=== PATIENT | female | born 1965 | race Caucasian/White ===

== ENCOUNTER 2019-12-09 09:29 | Emergency (ER) | payer BC, SELFPAY ==
[2019-12-09] VITALS (7 sets, daily range): BP systolic 139–165; BP diastolic 82–101; PULSE 66–83; RESP 13–21; TEMP 36.6; O2SAT 96–99
--- NOTE | ~2019-12-09 | XR_ITS ---
XR chest 1V portable INDICATION: Cough and chest pain TECHNIQUE: 2 view chest. FINDINGS: 11/07/2012 There is mild bilateral interstitial prominence and peribronchial cuffing. There is no focal consoli dation, pleural effusion, or pneumothorax. The cardiomediastinal silhouette is normal.] IMPRESSION: 1. Findings most consistent with bronchiolitis versus an atypical or viral pneumonia. Reviewed, dictated and finalized at location A. IMPRESSION: 1. Findings most consistent with bronchiolitis versus an atypical or viral pne [facility].
--- NOTE | ~2019-12-09 | CT_ITS ---
EXAMINATION: CT abdomen pelvis w con INDICATION: Midsternal and epigastric pain TECHNIQUE: Computed tomographic images of the abdomen and pelvis were obtained after the administrati on of 100 cc of Omnipaque 350 intravenous contrast. The dose-length product (DLP) was 1583.24 mGy-cm. Automated exposure control and iterative reconstruction technique were employed. COMPARISON: None available FINDINGS: Minimal dependent atelectasis is present in the lung bases. The heart size is normal. The l iver is diffusely low in attenuation when compared with the spleen, consistent with hepatic steatosis . The gallbladder is surgically absent. Calcifications throughout the pancreas are consistent with ch ronic pancreatitis. There is mild distention of the pancreatic duct in the body, likely related to dy strophic calcifications at the junction of the head/body of the pancreas. A 9 mm cystic lesion of the pancreatic tail also likely relates to prior pancreatitis. Cysts of the kidneys measure up to 1.8 cm on the left. No pathologically enlarged abdominal or pelvic lymph nodes are identified. There is no free intraperitoneal gas or evidence of bowel obstruction. The uterus is enlarged and demonstrates he terogeneous attenuation and calcification. There is mild lumbar spondylosis. IMPRESSION: 1. Findings consistent with chronic pancreatitis. 2. Diffuse hepatic steatosis. 3. Uterine enlargement which may be due to uterine fibroids however, consider nonemergent pelvic ultr asound follow-up. Reviewed, dictated and finalized at location B. IMPRESSION: 1. Findings consistent with chronic pancreatitis. 2. Diffuse hepatic steatosis. 3. Uterine enlargement which may be due to uterine fibroids however, consider n onemergent pelvic ultrasound follow-up.
--- NOTE | 2019-12-09 10:09 | ED.CHESTPAIN ---
HPI - Chest Pain General Chief Complaint: Chest Pain <Siria López PA-C - Last Filed: 12/09/19 15:38> Stated Complaint: CHEST TIGHTNESS <LIGIA Jett Last Filed: 12/09/19 15:38> Time Seen by Provider: 12/09/19 09:39 <Siria López PA-C - Last Filed: 12/09/19 15:38> Source: patient <LIGIA Jett Last Filed: 12/09/19 15:38> Mode of arrival: ambulatory <LIGIA Jett Last Filed: 12/09/19 15:38> Limitations: no limitations <Siria López PA-C - Last Filed: 12/09/19 15:38> History of Present Illness HPI narrative: This is a 54 year old female that presents to the ER for chest tightness x 2 hours. Reports last night she did not feel well. Reports when she woke up this morning she noted some tingling all over her body. Reports about 2 hours ago when she was sitting watching TV she started to have some substernal chest tightness. Reports it has been constant. Reports some relief when she sits up and worsening when laying flat. Also reports she was having some shortness of breath when it started. Reports some intermittent shortness of breath with exertion which has been ongoing for some time. Also reports a dry cough that has been present for about 10 days as well as some rhinorrhea and congestion. Reports she has been having some intermittent diarrhea since her cholecystectomy. Reports seeing blood on the tissue when she wiped. Denies fever, vomiting, dysuria, weakness, or melena. <LIGIA Jett Last Filed: 12/09/19 15:38> Related Data Home Medications: Home Medications Medication Instructions Recorded Confirmed glipizide 10 mg tablet 10 mg PO BID 08/20/19 08/31/19 insulin glargine 100 unit/mL (3 45 unit SUB-Q QPM 08/20/19 08/31/19 mL) subcutaneous pen metformin 1,000 mg tablet 1,000 mg PO BID 08/20/19 08/31/19 ergocalciferol (vitamin D2) 50,000 unit PO WEEKLY 08/21/19 08/31/19 [Vitamin D2] ezetimibe [Zetia] 10 mg PO DAILY 08/21/19 08/31/19 <Siria López PA-C - Last Filed: 12/09/19 15:38> Allergies/Adverse Reactions: Allergies Allergy/AdvReac Type Severity Reaction Status Date / Time Sulfa (Sulfonamide Allergy Mild Rash Verified 12/09/19 10:01 Antibiotics) naproxen AdvReac Intermediate LIGHT Verified 08/31/19 10:37 HEADED NAUSEA oxycodone AdvReac Intermediate Nausea and Verified 08/31/19 10:37 Vomiting gabapentin AdvReac Mild NAUSEA/VOMI Verified 08/31/19 10:37 TING Penicillins AdvReac Mild NAUSEATED Verified 08/31/19 10:37 prochlorperazine AdvReac Mild Jittery Verified 08/31/19 10:37 <Siria López PA-C - Last Filed: 12/09/19 15:38> Review of Systems Review of Systems: Narrative: CONSTITUTIONAL: Denies fever, chills ENT: Reports rhinorrhea, congestion, sore throat CARDIOVASCULAR: Reports chest pain. Denies palpitations, or edema. RESPIRATORY: Reports cough and dyspnea. MUSCULOSKELETAL: Reports back pain, joint pain, and myalgia. NEUROLOGIC: Reports numbness. Denies weakness. <Siria López PA-C - Last Filed: 12/09/19 15:38> All systems reviewed & are unremarkable except as noted in HPI and below <Siria López PA-C - Last Filed: 12/09/19 15:38> [facility] Social History Social History: Social History Smoking status: Never smoker Second hand tobacco smoke exposure: No Alcohol intake: current <Siria López PA-C - Last Filed: 12/09/19 15:38> Exam Narrative: Exam Narrative: GENERAL: Well-appearing, obese, and in no acute distress. HEAD: Normocephalic, atraumatic. EYES: PERRLA and EOMI. ENT: Nares clear, no rhinorrhea or epistaxis. Mucous membranes moist. Oropharynx without tonsillar hypertrophy exudate or other lesions. Bilateral TMs pearly yin non-bulging NECK: Supple. No adenopathy or masses. No carotid bruits or JVD CHEST: Clear to auscultation. No respiratory distress. No wheezes rales or rhonchi. Tender t
[2019-12-09] MEDS: NITROGLYCERIN SL 0.4 MG TABLET SUBLINGUAL ×2 (10:24→11:01)
[2019-12-09 10:39] LABS: Basophils Percent Auto 0.5 % (0.2-1.2); Eosinophils Absolute Auto 0.1 K/mm3 (0-0.3); Eosinophils Percent Auto 1.5 % (0-4.4); Hematocrit 40.9 % (37.0-47.0); Hemoglobin 13.3 g/dL (12.0-15.0); Immature Granulocyte Absolute 0.03 K/mm3 (0.00-0.031); Immature Granulocyte Percent A 0.4 % (0-0.5); Lymphocytes Percent Auto 23.3 % (18.3-44.2); Mean Corpuscular HGB Conc 32.5 g/dl (32-36); Mean Corpuscular Hemoglobin 28.9 pg (26-34); Mean Corpuscular Volume 88.9 fl (80-100); Mean Platelet Volume 10.9 fl (7.4-10.4); Monocytes Absolute Auto 0.5 K/mm3 (0.1-0.6); Monocytes Percent Auto 6.2 % (2.6-8.5); Neutrophils Percent Auto 68.1 % (45.5-73.1); Platelet Count Result 293 k/mm3 (150-375); Red Cell Distribution Width 13.7 % (11.5-14.5); White Blood Count 7.3 K/mm3 (4.5-10.0)
[2019-12-09 10:40] LABS: Alveolar/Arterial O2 Gradient 24.8 mmHg; Base Excess ABG 1.1 mEq/l (+/-2.0); Fractional Inspired Oxygen 21 %; HCO3 ABG 25.5 mEq/l (22.0-26.0); Methemoglobin ABG 0.2 %THb (0-1.5); Oxygen Content ABG 17.8 %vol (16.0-22.0); Oxygen Saturation ABG 95.7 % (95.0-100.0); Oxyhemoglobin 95.1 % THb (90.0-100.0); PCO2 ABG 39.8 mmHg (35.0-45.0); PO2 ABG 77.3 mmHg (80.0-100.0); PO2 FiO2 Ratio Arterial Blood 3.68 %; Reduced Hemoglobin 4.7 %THb (0-5.0); Total Hemoglobin 13.3 g/dL (12.0-18.0); pH ABG 7.424 (7.350-7.450)
[2019-12-09 10:41] LABS: Prothrombin Time 13.3 Seconds (11.1-14.7)
[2019-12-09 10:41] LABS: Device ROOM AIR; Modified Allen's Test Pass; Site Drawn RIGHT RADIAL
[2019-12-09 10:42] LABS: Alanine Aminotransferase 27 U/L (4-35); Albumin Level 3.8 g/dL (3.5-5.1); Alkaline Phosphatase 96 U/L (38-126); Aspartate Amino Transferase 29 U/L (14-36); Bilirubin,Total 0.3 mg/dL (0.2-1.3); Blood Urea Nitrogen 18 mg/dL (7-17); Calcium 8.8 mg/dL (8.4-10.2); Carbon Dioxide 27 mmol/L (22-30); Chloride 99 mmol/L (98-107); Estimated CRCL calculation 81 ml/min; Estimated Glomerular Filt Rate > 60; Glucose 171 mg/dL (65-105); Lactate Dehydrogenase 341 U/L (313-618); Partial Thromboplastin Time 32.6 SECONDS (22.3-36.8); Potassium 4.3 mmol/L (3.4-5.0); Sodium 136 mmol/L (137-145)
[2019-12-09 10:44] LABS: Lactic Acid Reflex 1.6 mmol/L (0.7-2.1)
[2019-12-09 10:46] LABS: CRP 2.3 mg/dL (<1.0)
[2019-12-09 10:51] LABS: D Dimer 0.39 ug/mL (<0.48)
[2019-12-09 10:54] LABS: NT Pro B Type Natriuretic Pept 64 PG/ML (5-100); Troponin I < 0.012 ng/mL (0.000-0.034)
--- NOTE | 2019-12-09 10:56 | ECG_ITS ---
Measurements Intervals [place] Rate: 78 P: 35 ID: [id number] QRS: -30 QRSD: 101 T: -1 QT: 379 QTc: 432 Interpretive Statements SINUS RHYTHM POSSIBLE LEFT ATRIAL ENLARGEMENT POSSIBLE LEFT VENTRICULAR HYPERTROPHY DELAYED PRECORDIAL R/S TRANSITION BORDERLINE T WAVE ABNORMALITY- ANT/INF LEADS BASELINE ARTIFACT- I, II, III, AVR, AVL, AVF BORDERLINE ECG Electronically Signed On 12-09-2019 11:17:29 CDT by Dnoald Blackwell D.O.
[2019-12-09] MEDS: BELLADONNA ALK/PHENOB ELIX 10 ML, MAG HYDROX/ALUMINUM HYD/SIMETH 30 ML, LIDOCAINE HCL 2... PO (11:49)
[2019-12-09 13:49] LABS: Lipase 61 U/L (23-300)
[2019-12-09 14:01] LABS: Troponin I < 0.012 ng/mL (0.000-0.034)
[2019-12-11 06:33] LABS: Procalcitonin <0.10 ng/mL (<0.10)
== END 2019-12-09 15:34 | disposition home or self-care (01) ==
PROVIDERS: Physician Assistant; Emergency Provider Emergency Medicine; PCP Family Medicine
DX: J12.9 Viral pneumonia, unspecified (principal); R10.13 Epigastric pain; R93.5 Abnormal findings on diagnostic imaging of other abdominal regions, including retroperitoneum; K76.0 Fatty (change of) liver, not elsewhere classified; N85.2 Hypertrophy of uterus
CPT/HCPCS: 36415; 36600; 71045; 74177; 80053; 82375; 82805; 83050; 83605; 83615; 83690; 83880; 84145; 84484; 85025; 85380; 85610; 85730; 86140; 87804; 93005; 96365; 96366; 96367; 99284; A9270; J0131; J0456; Q9967

== ENCOUNTER 2020-01-13 15:30 | Outpatient (CLI) | payer BC, SELFPAY ==
--- NOTE | ~2020-01-13 | XR_ITS ---
EXAMINATION: XR wrist LT 2V, XR hand LT min 3V EXAM DATE: 01/13/2020 16:05 INDICATION: Left wrist and hand pain after lifting 50 pound bag. Initial encounter. TECHNIQUE: Left hand frontal, lateral and oblique projections obtained and reviewed. Frontal and lat eral projections left wrist. There are no prior studies for comparison. FINDINGS: Left metacarpal bones are unremarkable. Scapholunate joint space is maintained. There are no bony erosions identified. Small ossifications adjacent to the pisiform which appear well-corticat ed, chronic. There are no acute fractures or dislocations identified. There is no subcutaneous gas. The soft tissue is unremarkable. There are no radiopaque foreign bodies. IMPRESSION: Left hand, wrist exam without acute osseous findings. Reviewed, dictated and finalized at location A. IMPRESSION: Left hand, wrist exam without acute osseous findings.
--- NOTE | ~2020-01-13 | XR_ITS ---
EXAMINATION: XR elbow LT 2V EXAM DATE: 01/13/2020 16:04 INDICATION: Left elbow pain after lifting 50 pounds back. TECHNIQUE: Frontal and lateral projections of the left elbow. Comparison is made to prior examinatio n from 09/03/2011. 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 There are no acute fractures or dislocatio ns identified. There is no subcutaneous gas. The soft tissue is unremarkable. There are no radiop aque foreign bodies. No joint effusion. IMPRESSION: Mild left elbow osteoarthritis. Reviewed, dictated and finalized at location A.
== END 2020-01-13 15:31 | disposition home or self-care (01) ==
PROVIDERS: PCP Family Medicine; Visit Provider Physician Assistant
DX: M79.603 Pain in arm, unspecified (principal); M19.022 Primary osteoarthritis, left elbow
CPT/HCPCS: 73070; 73100; 73130

== ENCOUNTER 2020-04-19 11:03 | Emergency (ER) | payer BC, SELFPAY ==
--- NOTE | ~2020-04-19 | CT_ITS ---
EXAMINATION: CT abdomen pelvis wo con DATE: 04/19/2020 12:12 INDICATION: Flank pain TECHNIQUE: Computed tomography (CT) of the abdomen and pelvis was performed without intravenous contr ast. Automated exposure control and iterative reconstruction technique were employed. Exam dose: 157 2.07 mGy-cm total exam DLP. COMPARISON: 12/09/[address] abdomen pelvis FINDINGS: There is discoid atelectasis or scarring at the lung bases, primarily involving the lingula . Heart size is borderline. No pericardial or pleural effusion. Status post cholecystectomy. No bile duct or pancreatic duct dilatation is detected. No hepatic, splenic, pancreatic or adrenal space-occupying mass lesion is evident. Probable 1.3 cm right renal cyst. Approximately 9 cm left uterine fundic fibroid with some calcification. The urinary bladder is unremarkable. Normal caliber of the abdominal aorta. No intraperitoneal or retroperitoneal or pelvic mass lesion or adenopathy or ascites is noted. There is mild diverticulosis of the right colon; no CT evidence of diverticulitis. Included skeletal structures are unremarkable other than degenerative changes of the thoracic and to a lesser extent lumbar spine. IMPRESSION: Chronic pancreatitis Status post cholecystectomy Probable 1.3 cm right renal cyst 9 cm uterine fibroid Reviewed, dictated and finalized at Location A. Reviewed, dictated and finalized at location B.
[2020-04-19 11:16] VITALS: BP 124/98; PULSE 74; RESP 16; TEMP 36.1; O2SAT 99
[2020-04-19 11:29] LABS: Basophils Percent Auto 0.5 % (0.2-1.2); Eosinophils Absolute Auto 0.1 K/mm3 (0-0.3); Eosinophils Percent Auto 1.2 % (0-4.4); Hematocrit 42.1 % (37.0-47.0); Hemoglobin 14.2 g/dL (12.0-15.0); Immature Granulocyte Absolute 0.01 K/mm3 (0.00-0.031); Immature Granulocyte Percent A 0.2 % (0-0.5); Lymphocytes Absolute Auto 2.17 K/mm3 (0.9-3.2); Lymphocytes Percent Auto 33.2 % (18.3-44.2); Mean Corpuscular HGB Conc 33.7 g/dl (32-36); Mean Corpuscular Hemoglobin 29.7 pg (26-34); Mean Corpuscular Volume 88.1 fl (80-100); Mean Platelet Volume 10.4 fl (7.4-10.4); Monocytes Absolute Auto 0.4 K/mm3 (0.1-0.6); Monocytes Percent Auto 5.8 % (2.6-8.5); Neutrophils Absolute Auto 3.9 K/mm3 (1.3-6.7); Neutrophils Percent Auto 59.1 % (45.5-73.1); Platelet Count Result 314 k/mm3 (150-375); Red Blood Count 4.78 M/mm3 (4.2-5.4); Red Cell Distribution Width 13.6 % (11.5-14.5); White Blood Count 6.5 K/mm3 (4.5-10.0)
[2020-04-19 11:41] LABS: Alanine Aminotransferase 33 U/L (4-35); Albumin Level 3.8 g/dL (3.5-5.1); Alkaline Phosphatase 80 U/L (38-126); Anion Gap 11.7 mmol/L (7-16); Aspartate Amino Transferase 29 U/L (14-36); Bilirubin,Total 0.3 mg/dL (0.2-1.3); Blood Urea Nitrogen 12 mg/dL (7-17); Carbon Dioxide 28 mmol/L (22-30); Chloride 102 mmol/L (98-107); Estimated CRCL calculation 81 ml/min; Estimated Glomerular Filt Rate > 60; Glucose 99 mg/dL (65-105); Lipase 72 U/L (23-300); Potassium 4.7 mmol/L (3.4-5.0); Sodium 137 mmol/L (137-145)
[2020-04-19 11:52] LABS: Add Urine Microscopic? YES; Appearance Urine Cloudy (Clear); Bacteria Urine Trace /hpf; Bilirubin Urine Negative (Negative); Blood Urine Negative (Negative); Color Urine Yellow (Yellow); Glucose Urine UA 3+ mg/dL (Negative); Ketones Urine Negative (Negative); Leukocyte Esterase Ur 3+ LEU/UL (Negative); Mucus Urine Rare /lpf; Nitrate Urine Negative (Negative); Protein Urine 2+ mg/dL (Negative); Specific Grav Ur 1.011 (1.001-1.035); Squamous Epithelial Cell Urine Many /hpf (Few); Transitional Epi Cells Urine Occasional /hpf (None Seen); Urobilinogen Urine Negative mg/dL (<2.0); WBC Urine >75 /hpf
--- NOTE | 2020-04-19 12:06 | ED.ABDPAIN ---
HPI - Abdominal Pain General Chief Complaint: Abdominal Pain <LIGIA Pena Last Filed: 04/19/20 13:43> Stated Complaint: chronic pancreatic pain turned acute <LIGIA Pena Last Filed: 04/19/20 13:43> Time Seen by Provider: 04/19/20 11:48 <LIGIA Pena Last Filed: 04/19/20 13:43> Source: patient and family <LIGIA Pena Last Filed: 04/19/20 13:43> Mode of arrival: ambulatory <LIGIA Pena Last Filed: 04/19/20 13:43> Limitations: no limitations <LIGIA Pena Last Filed: 04/19/20 13:43> History of Present Illness HPI narrative: Patient is a 54-year-old female who presents with several days duration of left upper abdominal pain with nausea notes that she had a few loose stools is also noted some cloudy urine patient notes history of chronic pancreatitis and that the pain feels consistent with her pancreatitis however she has had urinary tract infections as well patient on arrival to emergency department. Patient took a [place] this morning with no improvement. Patient is followed by Dr. Mckeon who is her soil expert <LIGIA Pena Last Filed: 04/19/20 13:43> Related Data Home Medications: Home Medications Medication Instructions Recorded Confirmed glipizide 10 mg tablet 10 mg PO BID 08/20/19 08/31/19 insulin glargine 100 unit/mL (3 45 unit SUB-Q QPM 08/20/19 08/31/19 mL) subcutaneous pen metformin 1,000 mg tablet 1,000 mg PO BID 08/20/19 08/31/19 ergocalciferol (vitamin D2) 50,000 unit PO WEEKLY 08/21/19 08/31/19 [Vitamin D2] ezetimibe [Zetia] 10 mg PO DAILY 08/21/19 08/31/19 <LIGIA Pena Last Filed: 04/19/20 13:43> Allergies/Adverse Reactions: Allergies Allergy/AdvReac Type Severity Reaction Status Date / Time Sulfa (Sulfonamide Allergy Mild Rash Verified 03/23/20 10:14 Antibiotics) naproxen AdvReac Intermediate LIGHT Verified 03/23/20 10:14 HEADED NAUSEA oxycodone AdvReac Intermediate Nausea and Verified 03/23/20 10:14 Vomiting gabapentin AdvReac Mild NAUSEA/VOMI Verified 03/23/20 10:14 TING Penicillins AdvReac Mild NAUSEATED Verified 03/23/20 10:14 prochlorperazine AdvReac Mild Jittery Verified 03/23/20 10:14 <Vasyl Keen PA-C - Last Filed: 04/19/20 13:43> Review of Systems Review of Systems: All systems reviewed & are unremarkable except as noted in HPI and below <Vasyl Keen PA-C - Last Filed: 04/19/20 13:43> [facility] Past Medical History Medical History: Medical History Chronic pancreatitis Colon cancer screening Diarrhea GERD (gastroesophageal reflux disease) High cholesterol History of seizure History of stroke Kidney stone Mitral valve prolapse Pancreatic cyst Stomach ulcer Thyroid disease Type 2 diabetes mellitus <Vasyl Keen PA-C - Last Filed: 04/19/20 13:43> Surgical History Surgical History: Surgical History H/O arthroscopy of left knee H/O dilation and curettage H/O lateral meniscus repair of left knee History of cholecystectomy Hx of appendectomy Hx of cholecystectomy (~2019) Hx of tonsillectomy <Vasyl Keen PA-C - Last Filed: 04/19/20 13:43> Family History Family History: Family History Mother Patient's mother is in good health Family history of schizophrenia, Onset Age: 51 Father Patient's father is in good health Family history of malignant neoplasm Sibling Patient's brother is in good health Grandparent Family history of chronic obstructive pulmonary disease Family history of lung cancer, Onset Age: 69 Other Diabetes mellitus Family history of seizure disorder <Vasyl Keen PA-C - Last Filed: 04/19/20 13:43> Social History Social History:
[2020-04-19] MEDS: ONDANSETRON INJ 4 MG/2 ML VIAL IV PUSH (12:27)
[2020-04-19] MEDS: SODIUM CHLORIDE 0.9% IV 1,000 ML 999 ML IV CONT (12:27)
[2020-04-19] MEDS: FAMOTIDINE 20 MG/2 ML VIAL IV PUSH (12:29)
[2020-04-19 14:15] VITALS: BP 140/80; PULSE 60; RESP 16; O2SAT 100
== END 2020-04-19 14:15 | disposition home or self-care (01) ==
PROVIDERS: Emergency Provider General Practice; PCP Family Medicine
DX: N39.0 Urinary tract infection, site not specified (principal); R10.12 Left upper quadrant pain; K21.9 Gastro-esophageal reflux disease without esophagitis; E78.5 Hyperlipidemia, unspecified; G40.909 Epilepsy, unspecified, not intractable, without status epilepticus; E11.9 Type 2 diabetes mellitus without complications; Z79.4 Long term (current) use of insulin
CPT/HCPCS: 36415; 74176; 80053; 81001; 83690; 85025; 87086; 87088; 96361; 96365; 96367; 96375; 99284; J0131; J0696; J2405; J3360; J7030

== ENCOUNTER 2020-11-28 15:52 | Outpatient (CLI) | payer BC, SELFPAY ==
--- NOTE | ~2020-11-28 | MR_ITS ---
EXAMINATION: MR MRCP wo/w con/w 3D wo ind DATE: 11/28/2020 17:10 INDICATION: Other chronic pancreatitis. TECHNIQUE: Magnetic resonance imaging (MRI) of the abdomen was performed without and with 20 mL Multi Ramakrishna intravenous contrast. Sequences included coronal T2-weighted FS FSE, coronal T2-weighted FSE, a xial T1-weighted LAVA, coronal FS FIESTA, axial dual-echo T1-weighted SPGR, coronal lava-FLEX, sagitt al T2-weighted FSE, axial T2-weighted FSE, and axial DWI. Thick-slab T2-weighted FSE images were obta ined for magnetic resonance cholangiopancreatography (MRCP). Maximum intensity projection 3-D reconst ructions of the volumetric data were created by the technologist. Postcontrast sequences included cor onal LAVA-flex and time course of axial T1-weighted LAVA. COMPARISON: CT abdomen and pelvis 04/19/20, 12/09/2019 FINDINGS: ABDOMEN MRI: There is diffuse hepatic steatosis. There is a 19 mm hyperenhancing mass in right hepati c lobe that is isointense to liver on T1 and T2-weighted images, stable from 12/09/2019, likely focal nodular hyperplasia. The gallbladder is absent. The spleen is normal. There is dilatation of the panc reatic duct in the body and tail of the pancreas with maximum diameter of 7 mm. There are multiple cy stic lesions of the pancreas measuring up to 13 mm, likely pseudocysts. The prior CT demonstrates num erous calcifications in the pancreas. These findings are consistent with chronic pancreatitis. The ad renal glands are normal. There are cysts in the kidneys measuring up to 15 mm on the right. There are no dilated loops of bowel. There are no pathologically enlarged lymph nodes. There is no free intrap eritoneal fluid. ABDOMEN MRCP: The common duct is normal in caliber. No choledocholithiasis. IMPRESSION: 1. Chronic pancreatitis. 2. Diffuse hepatic steatosis. Reviewed, dictated and finalized at location A.
[2020-11-28 16:29] LABS: Estimated Glomerular Filt Rate 57
== END 2020-11-28 15:53 | disposition home or self-care (01) ==
PROVIDERS: PCP Family Medicine; Visit Provider Internal Medicine Gastroenterology
DX: K86.1 Other chronic pancreatitis (principal); K86.2 Cyst of pancreas; K76.0 Fatty (change of) liver, not elsewhere classified
CPT/HCPCS: 74183; 76376; A9577

== ENCOUNTER → 2021-11-16 10:03 | Outpatient (CLI) | payer BC, SELFPAY ==
--- NOTE | ~2021-11-16 | XR_ITS ---
XR abdomen/kub 1V 11/16/2021 11:01 Indication: Chronic pancreatitis Procedure: KUB Comparison: 05/22/2017 Findings: There are coarse calcifications in the left upper abdomen, consistent with pancreatic calci fications secondary to chronic pancreatitis. There are cholecystectomy clips. Lung bases are unremark able. Nonobstructive bowel gas pattern. There are cholecystectomy clips. There are vascular calcifica tions in the pelvis. Impression: 1: Chronic pancreatitis. Reviewed, dictated and finalized at location A. [facility] Impression: 1: Chronic pancreatitis.
== END ==
PROVIDERS: PCP Family Medicine
DX: K86.1 Other chronic pancreatitis (principal)
CPT/HCPCS: 74018

== ENCOUNTER 2022-11-25 10:40 | Emergency (ER) | payer BC, SELFPAY ==
[2022-11-25] VITALS (16 sets, daily range): BP systolic 115–179; BP diastolic 67–102; PULSE 64–106; RESP 12–24; O2SAT 97–100
--- NOTE | ~2022-11-25 | CT_ITS ---
EXAMINATION: CT abdomen pelvis w con DATE: 11/25/2022 11:39 INDICATION: Epigastric pain radiating to the back. Nausea and vomiting. TECHNIQUE: Computed tomography (CT) of the abdomen and pelvis was performed with 100 mL Omnipaque-350 intravenous contrast. Automated exposure control and iterative reconstruction technique were employe d. The dose-length product was 1769.09 mGy-cm. COMPARISON: MRI dated 11/28/[address] dated 04/19/2020 FINDINGS: Discoid atelectasis at the lingula. Heart size is normal. Atherosclerotic coronary artery calcific le edna. No pericardial or pleural effusion. Visualized portion of the thoracic aorta is normal in calib er. Cholecystectomy clips the gallbladder fossa. Liver, spleen and bilateral adrenal glands are fanny l. Multiple dystrophic calcifications in the pancreas predominantly at the tail consistent with seque la of chronic pancreatitis. No peripancreatic inflammatory stranding to suggest acute pancreatitis. B ilateral parenchymal and parapelvic renal cysts, the largest in the right kidney measuring 1.9 cm. Fi broid uterus with a couple subserosal fibroids arising from the anterior uterus the larger measuring 10.7 cm and the smaller measuring 1.1 cm . Bladder and bilateral adnexa are unremarkable. No abnormal bowel wall thickening or obstruction. No free intraperitoneal gas or fluid. No pathologically enlarg ed abdominal or pelvic lymphadenopathy. Mild lumbar levoscoliosis with mild spondylosis. IMPRESSION: 1. No acute intra-abdominal/pelvic process. 2. Numerous dystrophic parenchymal calcifications of the pancreas consistent with sequela of chronic pancreatitis. 3. Fibroid uterus. Reviewed, dictated and finalized at location A. IMPRESSION: 1. No acute intra-abdominal/pelvic process. 2. Numerous dystrophic parenchymal calcifications of the pancreas consistent wi th sequela of chronic pancreatitis. 3. Fibroid uterus.
[2022-11-25 11:06] LABS: Basophils Percent Auto 0.4 % (0.2-1.2); Eosinophils Absolute Auto 0.2 K/mm3 (0-0.3); Eosinophils Percent Auto 1.9 % (0-4.4); Hemoglobin 14.4 g/dL (12.0-15.0); Immature Granulocyte Absolute 0.03 K/mm3 (0.00-0.031); Immature Granulocyte Percent A 0.3 % (0-0.5); Lymphocytes Absolute Auto 2.13 K/mm3 (0.9-3.2); Lymphocytes Percent Auto 21.6 % (18.3-44.2); Mean Corpuscular HGB Conc 32.7 g/dl (32-36); Mean Corpuscular Hemoglobin 29.1 pg (26-34); Mean Corpuscular Volume 88.9 fl (80-100); Mean Platelet Volume 10.1 fl (7.4-10.4); Monocytes Absolute Auto 0.7 K/mm3 (0.1-0.6); Monocytes Percent Auto 6.7 % (2.6-8.5); Neutrophils Absolute Auto 6.8 K/mm3 (1.3-6.7); Neutrophils Percent Auto 69.1 % (45.5-73.1); Platelet Count Result 325 k/mm3 (150-375); Red Blood Count 4.95 M/mm3 (4.2-5.4); Red Cell Distribution Width 14.6 % (11.5-14.5); White Blood Count 9.9 K/mm3 (4.5-10.0)
--- NOTE | 2022-11-25 11:10 | ED.GENADULT ---
HPI - General Adult General Chief complaint: Abdominal Pain Stated complaint: back/abdominal/chest pain x 1hr Time Seen by Provider: 11/25/22 10:52 History of Present Illness HPI narrative: 57-year-old female presented to the emergency department for evaluation of acute on chronic abdominal pain. Patient reports she does have history of pancreatitis and had previous follow-up with a GI in [place]. She stated GI was unable to take care of her pancreatic pain so she has been referred to pain management. Patient reports does have a prior history of cholecystectomy but reports he does still make gallstones. Patient states this morning she had acute onset of upper abdominal pain that radiates to her middle back but does feel consistent with her previous episodes of pancreatitis. Patient does report associated nausea and vomiting. Related Data Home Medications Medication Instructions Recorded Confirmed metformin 1,000 mg tablet 1,000 mg PO BID 08/20/19 09/05/22 ergocalciferol (vitamin D2) 1,250 50,000 unit PO WEEKLY 08/21/19 09/05/22 mcg (50,000 unit) capsule (Vitamin D2) ezetimibe 10 mg tablet (Zetia) 10 mg PO DAILY 08/21/19 09/05/22 insulin aspart (niacinamide) 200 unit subcut Q2D 04/19/21 09/05/22 (U-100) 100 unit/mL subcutaneous solution (Fiasp U-100 Insulin) Allergies Allergy/AdvReac Type Severity Reaction Status Date / Time Sulfa (Sulfonamide Allergy Mild Rash Verified 11/25/22 10:55 Antibiotics) naproxen AdvReac Intermediate LIGHT Verified 11/25/22 10:55 HEADED NAUSEA oxycodone AdvReac Intermediate Nausea and Verified 11/25/22 10:55 Vomiting gabapentin AdvReac Mild NAUSEA/VOMI Verified 11/25/22 10:55 TING Penicillins AdvReac Mild NAUSEATED Verified 11/25/22 10:55 prochlorperazine AdvReac Mild Jittery Verified 11/25/22 10:55 Review of Systems Review of Systems: All systems reviewed & are unremarkable except as noted in HPI and below PMFSH Past Medical History Medical History Chronic pancreatitis Colon cancer screening Diarrhea GERD (gastroesophageal reflux disease) High cholesterol History of seizure History of stroke Kidney stone Mitral valve prolapse Obesity (BMI 30-39.9) Pancreatic cyst Stomach ulcer Thyroid disease Type 2 diabetes mellitus Surgical History Surgical History H/O arthroscopy of left knee H/O dilation and curettage H/O lateral meniscus repair of left knee History of cholecystectomy Hx of appendectomy Hx of cholecystectomy (~2019) Hx of tonsillectomy Family History Family History Mother Patient's mother is in good health Family history of schizophrenia, Onset Age: 51 Father Patient's father is in good health Family history of malignant neoplasm Sibling Patient's brother is in good health Grandparent Family history of chronic obstructive pulmonary disease Family history of lung cancer, Onset Age: 69 Other Diabetes mellitus Family history of seizure disorder Social History Social History Smoking status: Never smoker Second hand tobacco smoke exposure: No Alcohol intake: current Gender identity (if verbalized by the patient): Female Exam Narrative: APPEARANCE: Well appearing, no pain, no distress, well-nourished. HEAD: normocephalic, atraumatic. EYES: PERRLA/EOMI, conjunctivae clear. NOSE: Normal no drainage NECK: Supple. No adenopathy, no masses. RESPIRATORY: Airway patent, respirations nonlabored. Clear to auscultation bilaterally, no rales, rhonchi, wheezing. CARDIOVASCULAR: Regular rate and rhythm without murmurs rubs or gallops. ABDOMINAL: Soft, nondistended, normal bowel sounds, epigastric tenderness to palpation. MUSCULOSKELETAL: Moves all extremities. Reports diffuse back tenderness to p
[2022-11-25] MEDS: SODIUM CHLORIDE 0.9% IV 1,000 ML 999 ML IV CONT (11:15)
[2022-11-25 11:16] LABS: Alanine Aminotransferase 19 U/L (6-35); Albumin Level 4.2 g/dL (3.5-5.1); Alkaline Phosphatase 88 U/L (38-126); Anion Gap 6 mmol/L (8-16); Aspartate Amino Transferase 20 U/L (14-36); Bilirubin,Total 0.5 mg/dL (0.2-1.3); Blood Urea Nitrogen 22 mg/dL (7-17); Calcium 9.2 mg/dL (8.4-10.2); Carbon Dioxide 27 mmol/L (22-30); Chloride 104 mmol/L (98-107); Estimated CRCL calculation 68 ml/min; Estimated Glomerular Filt Rate 57; Glucose 98 mg/dL (65-110); Lipase 97 U/L (23-300); Potassium 4.2 mmol/L (3.4-5.0); Sodium 137 mmol/L (137-145)
[2022-11-25] MEDS: ONDANSETRON INJ 4 MG/2 ML VIAL IV PUSH (11:16)
[2022-11-25] MEDS: fentaNYL CITRATE INJ (*CRX) 100 MCG/2 ML VIAL IV PUSH (11:17)
[2022-11-25] MEDS: diphenhydrAMINE HCl INJ 50 MG/ML VIAL 25 MG IV PUSH (11:21)
[2022-11-25 11:52] LABS: Glucose Point of Care 74 mg/dl (65-105)
--- NOTE | 2022-11-25 11:53 | PC.NURSE ---
patient given orange juice per verbal order from Dr Curtis due to blood sugar being low
[2022-11-25 12:57] LABS: Glucose Point of Care 63 mg/dl (65-105)
--- NOTE | 2022-11-25 12:59 | PC.NURSE ---
Patient blood sugar was still low after drinking juice. Spoke with Dr Curtis and he advised patient to turn her insulin pump off at this time.
[2022-11-25] MEDS: DEXTROSE 50% 25 GM/50 ML SYRINGE IV PUSH (13:09)
[2022-11-25] MEDS: fentaNYL CITRATE INJ (*CRX) 100 MCG/2 ML VIAL 50 MCG IV PUSH (13:14)
[2022-11-25 13:48] LABS: Glucose Point of Care 142 mg/dl (65-105)
== END 2022-11-25 14:42 | disposition home or self-care (01) ==
PROVIDERS: Emergency Provider Emergency Medicine; PCP Family Medicine
DX: K86.1 Other chronic pancreatitis (principal); E11.9 Type 2 diabetes mellitus without complications; Z79.4 Long term (current) use of insulin
CPT/HCPCS: 36415; 74177; 80053; 82948; 83690; 85025; 96361; 96374; 96375; 96376; 99284; J1200; J2405; J3010; J7030; Q9967

== ENCOUNTER 2024-06-04 13:14 | Outpatient (CLI) | payer BC, SELFPAY ==
--- NOTE | 2024-06-04 13:24 | ECG_ITS ---
Test Date: 2024-06-04 13:49:23 Measurements Intervals [place] Rate: 61 P: 36 WI: 204 QRS: -28 QRSD: 100 T: -7 QT: 400 QTc: 404 Interpretive Statements SINUS RHYTHM INCOMPLETE RIGHT BUNDLE BRANCH BLOCK LOW QRS VOLTAGE IN PRECORDIAL LEADS POOR R WAVE PROGRESSION BORDERLINE ST-T WAVE ABNORMALITY- ANT/INF LEADS BASELINE ARTIFACT- I, II, III, AVR, AVL, AVF BORDERLINE ECG No previous ECG available for comparison Electronically Signed On 06-04-2024 14:09:29 CDT by Donald Blackwell D.O.
[2024-06-04 14:08] LABS: Basophils Percent Auto 0.6 % (0.2-1.2); Eosinophils Absolute Auto 0.2 K/mm3 (0-0.3); Eosinophils Percent Auto 2.1 % (0-4.4); Hematocrit 41.5 % (37.0-47.0); Hemoglobin 13.5 g/dL (12.0-15.0); Immature Granulocyte Absolute 0.02 K/mm3 (0.00-0.031); Immature Granulocyte Percent A 0.3 % (0-0.5); Lymphocytes Absolute Auto 1.94 K/mm3 (0.9-3.2); Mean Corpuscular HGB Conc 32.5 g/dl (32-36); Mean Corpuscular Volume 89.2 fl (80-100); Mean Platelet Volume 11.2 fl (7.4-10.4); Monocytes Absolute Auto 0.6 K/mm3 (0.1-0.6); Monocytes Percent Auto 7.8 % (2.6-8.5); Neutrophils Absolute Auto 4.5 K/mm3 (1.3-6.7); Neutrophils Percent Auto 62.2 % (45.5-73.1); Platelet Count Result 263 k/mm3 (150-375); Red Blood Count 4.65 M/mm3 (4.2-5.4); Red Cell Distribution Width 14.2 % (11.5-14.5); White Blood Count 7.2 K/mm3 (4.5-10.0)
[2024-06-04 14:13] LABS: INR 1.2
[2024-06-04 14:14] LABS: Partial Thromboplastin Time 31.1 Seconds (22.3-36.8)
[2024-06-04 14:31] LABS: Anion Gap 8 mmol/L (4-12); Blood Urea Nitrogen 23 mg/dL (7-17); Calcium 9.4 mg/dL (8.4-10.2); Carbon Dioxide 27 mmol/L (22-30); Chloride 101 mmol/L (98-107); Estimated Glomerular Filt Rate 42; Glucose 131 mg/dL (65-110); Potassium 4.6 mmol/L (3.4-5.0); Sodium 136 mmol/L (137-145)
== END 2024-06-04 13:15 | disposition home or self-care (01) ==
LOC: ANHSURGERY 13:19
PROVIDERS: Anesthesiology; PCP Family Medicine; Visit Provider Obstetrics & Gynecology
DX: N28.9 Disorder of kidney and ureter, unspecified (principal); D25.9 Leiomyoma of uterus, unspecified; E11.9 Type 2 diabetes mellitus without complications
CPT/HCPCS: 36415; 80048; 85025; 85610; 85730; 86850; 86900; 86901; 93005

== ENCOUNTER 2024-06-12 00:52 | Day surgery (SDC) | payer BC, SELFPAY ==
[2024-06-04 09:20] VITALS: BMI 38.8
--- NOTE | 2024-06-04 09:28 | PC.NURSE ---
Report to the Outpatient Waiting Room, entrance under the green pavilion located off [facility], at time _0600_ on date _[id number]_. Planned Procedure Time: _0730_.? Time changes happen often and if your time is changed the preop area will call you the afternoon before. - You and your visitor will be asked to self-screen and do not enter if you have any COVID symptoms. Please call surgeon if you need to reschedule. - A mask is optional within the hospital at this time. Patients may have clear liquids (water, carbonated beverages, clear teas, apple juice) until 3 hours prior to surgery with a maximum of 20 ounces. - No food from midnight until time of surgery and no smoking Take only the following medications with a SIP of water on the morning of surgery: ___Continue insulin pump and glucose monitor. DO NOT STOP ANY OF YOUR OTHER PRESCRIPTION MEDICATIONS PRIOR TO SURGERY EXCEPT THE FOLLOWING Medications to discontinue per physician ____None___ Please no make-up, nail namibian, hairspray, perfume, deodorant, or body powder the day of surgery.? No jewelry (including any body piercings) or valuables the day of surgery, leave them at home.? Please take a shower or bath the night before, or the morning of, surgery with an antibacterial soap.? Wear comfortable, loose fitting clothing.? - Jewelry must be removed prior to entering the operating room.? Rings and piercings that are not removed may be cut off. - The hospital will not accept responsibility for valuables.? - Please leave all valuables, including medications, at home the day of surgery. If you are going home after surgery, a licensed refrigerated company driver must drive you home.? - NO public transportation without another adult if you receive anesthesia. - We recommend that an adult stay with you for 24 hours following discharge. - We also recommend that you do not drive, make important decision, drink alcoholic beverages, or take any drugs that were not prescribed by your health care provider for at least 24 hours after your discharge time. Follow any additional instructions given to you from your surgeon. Telephone instructions given to __Wendy__and asked if any additional questions and then verbalized understanding. Patient advised to call surgeon office or pre surgery nurse liaison [phone] if any additional questions.
--- NOTE | 2024-06-10 16:20 | PM.IMHP ---
H&P: HPI History of Present Illness Date/Time: 06/10/24 16:20 Chief Complaint: Enlarged uterus uterine fibroids Narrative: 58-year-old female multiparous in nature with symptomatic uterine fibroids. Ultrasound reveals multiple fibroids with the uterus [id number] she will undergo robotic total vaginal hysterectomy and bilateral salpingo-oophorectomy. Risks and benefits reviewed including not exclusive of , aspiration pneumonia, bleeding, transfusion, perforation injury to bowel, bladder, ureters, or other internal organs with the need for open laparotomy. She received the [employer] handout entitled hysterectomy as well as the de Sanchez handout. She had all questions answered. She asked to proceed PMFSH Past Medical History Medical History Chronic pancreatitis Colon cancer screening Diarrhea GERD (gastroesophageal reflux disease) High cholesterol History of seizure History of stroke Kidney stone Mitral valve prolapse Obesity (BMI 30-39.9) Pancreatic cyst Stomach ulcer Thyroid disease Type 2 diabetes mellitus Surgical History Surgical History H/O arthroscopy of left knee H/O dilation and curettage H/O lateral meniscus repair of left knee History of cholecystectomy Hx of appendectomy Hx of cholecystectomy (~2019) Hx of tonsillectomy Family History Family History Mother Patient's mother is in good health Family history of schizophrenia, Onset Age: 51 Father Patient's father is in good health Family history of malignant neoplasm Sibling Patient's brother is in good health Grandparent Family history of chronic obstructive pulmonary disease Family history of lung cancer, Onset Age: 69 Other Diabetes mellitus Family history of seizure disorder Social History Social History Smoking status: Never smoker Second hand tobacco smoke exposure: No Alcohol intake: current Living arrangements: with family Gender identity (if verbalized by the patient): Female Spiritual care concerns: No Meds Home Medications and Allergies Home Medications Medication Instructions Recorded Confirmed Type metformin 1,000 mg tablet 1,000 mg PO BID 08/20/19 06/04/24 History ezetimibe 10 mg tablet (Zetia) 10 mg PO DAILY 08/21/19 06/04/24 History blood sugar diagnostic (OneTouch #360 ea 08/25/19 06/04/24 Rx Verio test strips) ondansetron 4 mg disintegrating 4 mg PO Q6H PRN nausea and 03/23/20 06/04/24 Rx tablet vomiting #90 tabs phenazopyridine 200 mg tablet 200 mg PO TID PRN pain 6 doses #6 04/19/20 06/04/24 Rx (Pyridium) tabs insulin aspart (niacinamide) 200 unit subcut Q2D 04/19/21 06/04/24 History (U-100) 100 unit/mL subcutaneous solution (Fiasp U-100 Insulin) omeprazole 40 mg capsule,delayed 40 mg PO BID #60 caps 05/15/21 06/04/24 Rx release triamcinolone acetonide 0.1 % 1 applic topical BID #30 grams 05/01/24 06/04/24 Rx topical ointment benzonatate 100 mg capsule 100 mg PO TID PRN Cough 06/04/24 06/04/24 History hydrocodone 7.5 mg-acetaminophen 1 tablet PO DAILY PRN Pain 06/04/24 06/04/24 History 325 mg tablet nystatin 100,000 unit/gram topical 1 applic topical TID PRN Rash 06/04/24 06/04/24 History powder Allergies Allergy/AdvReac Type Severity Reaction Status Date / Time Sulfa (Sulfonamide Allergy Mild Rash Verified 06/04/24 09:15 Antibiotics) naproxen AdvReac Intermediate LIGHT Verified 06/04/24 09:15 HEADED NAUSEA oxycodone AdvReac Intermediate Nausea and Verified 06/04/24 09:15 Vomiting gabapentin AdvReac Mild NAUSEA/VOMI Verified 06/04/24 09:15 TING Penicillins AdvReac Mild NAUSEATED Verified 06/04/24 09:15 prochlorperazine AdvReac Mild Jittery Verified 06/04/24 09:15 Exam Const:
[2024-06-12] VITALS (13 sets, daily range): BP systolic 95–144; BP diastolic 59–84; PULSE 56–70; RESP 10–18; TEMP 36–36.8; O2SAT 95–100
--- NOTE | 2024-06-12 06:30 | WPDHPUPDATE1 ---
History and Physical Update Update Date/Time: 06/12/24 06:30 History and Physical has been reviewed, including an updated exam of the patient. There are NO changes in the patient's condition. Risks, benefits, and alternatives have been discussed and questions answered. Patient agrees to proceed with procedure.
[2024-06-12] MEDS: ACETAMINOPHEN 500 MG TABLET 1000 MG PO (06:45)
[2024-06-12] MEDS: LACTATED RINGERS 1,000 ML 30 ML IV CONT ×2 (06:50→10:00)
[2024-06-12 06:56] LABS: Glucose Point of Care 172 mg/dl (65-105)
--- NOTE | 2024-06-12 07:25 | WPDANESEPPF ---
Anes - Initial Pre Proc Eval Procedure: Operation Date: 06/12/24 07:30 Proposed Procedures p Robotic Assisted Total Vaginal Hysterectomy with Bilateral Salpingo Oophorectomy - Guille Monique MD Date/Time: 06/12/24 07:25 Surgeon: Guille Monique MD Pre Op Diagnosis: enlarged uterus, pelvic pain,fibroids Patient Data Age: 58 Gender: F Height: 1.73 m Weight: 116.7 kg Last Vital Signs Temp 97.5 F L 06/12/24 06:50 Pulse 68 06/12/24 06:50 Resp 18 06/12/24 06:50 BP 136/76 06/12/24 06:50 Pulse Ox 95 06/12/24 06:50 O2 Del Method Room Air 06/12/24 06:50 Allergies Allergy/AdvReac Type Severity Reaction Status Date / Time Sulfa (Sulfonamide Allergy Mild Rash Verified 06/12/24 07:01 Antibiotics) naproxen AdvReac Intermediate LIGHT Verified 06/12/24 07:01 HEADED NAUSEA oxycodone AdvReac Intermediate Nausea and Verified 06/12/24 07:01 Vomiting gabapentin AdvReac Mild NAUSEA/VOMI Verified 06/12/24 07:01 TING Penicillins AdvReac Mild NAUSEATED Verified 06/12/24 07:01 prochlorperazine AdvReac Mild Jittery Verified 06/12/24 07:01 Home Medications Medication Instructions Recorded Confirmed Type metformin 1,000 mg tablet 1,000 mg PO BID 08/20/19 06/12/24 History ezetimibe 10 mg tablet (Zetia) 10 mg PO DAILY 08/21/19 06/12/24 History blood sugar diagnostic (OneTouch #360 ea 08/25/19 06/04/24 Rx Verio test strips) ondansetron 4 mg disintegrating 4 mg PO Q6H PRN nausea and 03/23/20 06/04/24 Rx tablet vomiting #90 tabs phenazopyridine 200 mg tablet 200 mg PO TID PRN pain 6 doses #6 04/19/20 06/04/24 Rx (Pyridium) tabs insulin aspart (niacinamide) 200 unit subcut Q2D 04/19/21 06/12/24 History (U-100) 100 unit/mL subcutaneous solution (Fiasp U-100 Insulin) omeprazole 40 mg capsule,delayed 40 mg PO BID #60 caps 05/15/21 06/12/24 Rx release triamcinolone acetonide 0.1 % 1 applic topical BID #30 grams 05/01/24 06/12/24 Rx topical ointment benzonatate 100 mg capsule 100 mg PO TID PRN Cough 06/04/24 06/04/24 History hydrocodone 7.5 mg-acetaminophen 1 tablet PO DAILY PRN Pain 06/04/24 06/04/24 History 325 mg tablet nystatin 100,000 unit/gram topical 1 applic topical TID PRN Rash 06/04/24 06/04/24 History powder hydrocodone 7.5 mg-acetaminophen 1 tablet PO Q4H PRN pain #30 tabs 06/12/24 Rx 325 mg tablet Laboratory Tests 06/12/24 06:52 POC Capillary Glucose 172 H mg/dl (65-105) Patient hx anesthesia problems: none Family hx anesthesia problems: none Results Review: All pre-operative results and documents have been reviewed as part of the pre-operative evaluation. [facility] Past Medical History Medical History Chronic pancreatitis Colon cancer screening Diarrhea GERD (gastroesophageal reflux disease) High cholesterol History of seizure History of stroke Kidney stone Mitral valve prolapse Obesity (BMI 30-39.9) Pancreatic cyst Stomach ulcer Thyroid disease Type 2 diabetes mellitus Surgical History Surgical History H/O arthroscopy of left knee H/O dilation and curettage H/O lateral meniscus repair of left knee History of cholecystectomy Hx of appendectomy Hx of cholecystectomy (~2019) Hx of tonsillectomy Family History Family History Mother Patient's mother is in good health Family history of schizophrenia, Onset Age: 51 Father Patient's father is in good health Family history of malignant neoplasm Sibling Patient's brother is in good health Grandparent Family history of chronic obstructive pulmonary disease Family history of lung cancer, Onset Age: 69 Other Diabetes mellitus Family history of seizure disorder Social History Social History Sm
[2024-06-12] MEDS: ceFAZolin 2 GM/D5W 50 ML 2 GM/50 ML BAG IVPB (07:34)
[2024-06-12] MEDS: KETOROLAC 15 MG/ML VIAL (*BKC) IV PUSH (07:50)
--- NOTE | 2024-06-12 09:48 | W.PM.PROC2 ---
Procedure Note - Detailed Date of Procedure 06/12/24 Pre-op Diagnosis enlarged uterus, pelvic pain,fibroids Post-op Diagnosis Same Procedure Performed Robotic total vaginal hysterectomy bilateral salpingo-oophorectomy Surgeon Guille Monique MD Anesthesia General Indications 58-year-old female large pelvic fibroid Findings uterus with a huge uterine fibroid / ovaries tubes Description of Procedure patient was prepped draped in normal sterile placed dorsal lithotomy position. Under excellent general trach anesthesia weighted speculum placed in the posterior fornix of vagina. Anterior lip of the uterus sounded with a single-tooth tenaculum uterus sounded to 10cm. Serial dilatation with fragmented dilators performed followed by passes the 10. MARY and the 3. Cold cup. The single-tooth was removed and the and fully placed in the bladder and drained of clear urine. Weighted speculum was removed the gloves were changed. Supraumbilical incision made the Veress needle passed in the abdomen abdomen filled with CO2 gas to 15. 5Minutes window trocar advanced in the abdomen. Downside visualized seen patient placed in Trendelenburg and left incisions made. Eight trocars advanced under direct visualization assuring no injury. A right upper quadrant incision was made the 8mm trocar advanced under direct visualization assuring no injury. The robot was docked. Attention was turned to the assessment counselor. The uterus was large huge fibroid was seen extending through to the adnexa lateral area pelvis the round ligament the right was clamped, burned, cut bladder flap was formed by sharply dissecting peritoneum to the opposite round ligament was clamped, burned, cut. Next infundibulopelvic structure was skeletonized to ovary tube clamped, burned, cut and brought to the of previously cut round. In similar fashion the infundibulopelvic structure on the left was skeletonized clamping burning cutting every this to the round ligament right. The cardinal and broad ligaments on the left were then skeletonized clamping burning cutting and bring these down lateral edge to the large uterine vessels these were all individually clamped, burned, cut. In similar fashion on the right the cardinal broad ligaments were clamped, burned, cut hugging the cervix uterus until the uterine vessels could be seen right these were individually clamped, burned, cut. At that point a the uterus was bisected and bisected again and bisected a 3rd time 2 points uterus in multiple pieces. The colpotomy incision was made cervix uterus tubes removed through the multiple parts fibroid were passed through the vaginal cuff. Vaginal cuff then closed with continuous running 0V lock from lateral edge to lateral edge back the midline. Irrigation subcutaneous and blood loss estimated at 25 at50cc. All sponge, needle, instrument counts were correct. Robot was undocked. The laps removed and accounted for and skin closed with 4-0 Monocryl glue blood loss estimated 50cc. All sponge, needle, instrument counts were correct. There were no immediate complications Estimated Blood Loss 50 Drains No Packing No Pathology Yes Complications No immediate complications Condition Stable Disposition PACU
--- NOTE | 2024-06-12 09:53 | P.DS_ITS ---
DS: Admitting Diagnosis Discharge Date 06/13/2024 Admitting Diagnosis uterine fibroids DS: Discharge Diagnosis Discharge Diagnosis (1) Pelvic pain: Code(s): R10.2 - Pelvic and perineal pain Status: Acute (2) Enlarged uterus: Code(s): N85.2 - Hypertrophy of uterus Status: Acute DS: Summary Hospital Course Reason for hospitalization: patient underwent robotic total vaginal hysterectomy bilateral salpingo- oophorectomy on 06/12/2024. Hospital Course: Her hospital course unremarkable. She remained afebrile. She was up, voiding without difficulty, eating regular diet, ambulating, and generally without complaints. Time Spent with Patient Time attestation: Total time spent providing and/or coordinating discharge services: Exam Const: General: cooperative, healthy appearing and comfortable Orientation/consciousness: oriented to person, oriented to place and oriented to time HENMT: Head: normal to inspection Resp: Effort & Inspection: normal respiratory effort Cardio: Rate: regular rate Rhythm: regular rhythm Heart sounds: S1 normal heart sound present and S2 normal heart sound present GI: Inspection: normal to inspection, incision ( Wounds are clean dry and intact) and obesity DS: Data Data Completed and Pending Pending studies at discharge: Pending at discharge 06/12/24 09:44 Surgical [PTH] Routine Labs on day of discharge: Labs from last 24 hours 06/12/24 06:52 POC Capillary Glucose 172 H Discharge Plan Discharge Patient Disposition: Home, Self-Care Stand Alone Forms: General Discharge Instructions Follow-up/Referrals: Guille Max MD [Physician] - Discharge Medications: New hydrocodone-acetaminophen 7.5-325 mg tablet 1 tablet PO Q4H PRN (Reason: pain) Qty: 30 0RF No Action Fiasp U-100 Insulin 100 unit/mL solution 200 unit subcut Q2D omeprazole 40 mg capsule,delayed release(DR/EC) 40 mg PO BID Qty: 60 3RF metformin 1,000 mg tablet 1,000 mg PO BID ondansetron 4 mg tablet,disintegrating 4 mg PO Q6H PRN (Reason: nausea and vomiting) Qty: 90 11RF phenazopyridine [Pyridium] 200 mg tablet 200 mg PO TID PRN (Reason: pain) Qty: 6 0RF nystatin 100,000 unit/gram powder 1 applic TOPICAL TID PRN (Reason: Rash) benzonatate 100 mg capsule 100 mg PO TID PRN (Reason: Cough) hydrocodone-acetaminophen 7.5-325 mg tablet 1 tablet PO DAILY PRN (Reason: Pain) ezetimibe [Zetia] 10 mg Tablet 10 mg PO DAILY (DME) OneTouch Verio test strips Strip See Rx Instructions .ROUTE .MEDSUPPLY Qty: 360 3RF Rx Instructions: use to test 4 times a day triamcinolone acetonide 0.1 % ointment 1 applic TOPICAL BID Qty: 30 1RF
[2024-06-12] MEDS: fentaNYL CITRATE INJ (*CRX) 100 MCG/2 ML VIAL 25 MCG IV PUSH ×4 (10:40→10:55)
[2024-06-12 10:46] LABS: Glucose Point of Care 250 mg/dl (65-105)
[2024-06-12] MEDS: ONDANSETRON INJ 4 MG/2 ML VIAL IV PUSH ×2 (10:46→17:48)
--- NOTE | 2024-06-12 11:30 | ADMGEN ---
This patient, Faina Galvan, was admitted to OB 2nd Floor Room 281-00. Patient/family oriented to hospital policies and general routines including ID bracelet, bed and alarms, visiting hours, pain management, procedures, bathroom and other care routines, personal items, smoking policy, room service/diet, and visiting hours. Information on how to activate the Rapid Response Team has been discussed. Patient/Family are encouraged to report perceived risks to care and to ask questions if they do not understand what they are told or what they should do.
[2024-06-12] MEDS: KETOROLAC 30 MG/ML VIAL (*BKC) IV PUSH ×2 (12:12→19:37)
[2024-06-12] MEDS: SIMETHICONE 80 MG TAB.CHEW PO ×2 (12:12→16:38)
[2024-06-12] MEDS: HYDROcodone/acetaminophen (*CRX) 10-325 MG TABLET 1 TAB PO ×2 (12:42→15:47)
--- NOTE | 2024-06-12 12:45 | WPDCN ---
Assessment and Plan Assessment and plan (1) Pelvic pain: Code(s): R10.2 - Pelvic and perineal pain Status: Acute (2) Enlarged uterus: Code(s): N85.2 - Hypertrophy of uterus Status: Acute (3) Uterine fibroid: Code(s): D25.9 - Leiomyoma of uterus, unspecified Status: Acute (4) Insulin dependent type 2 diabetes mellitus: Code(s): E11.9 - Type 2 diabetes mellitus without complications; Z79.4 - halfway (current) use of insulin Status: Acute Plan The patient is postoperative day 0 status post robotic total vaginal hysterectomy with bilateral salpingo-oophorectomy. Wound care, pain control, and DVT prophylaxis deferred to primary service. The hospitalist service has been consulted for help managing her diabetes. The patient may use her insulin pump. Accu-Cheks ordered ACHS. Initiate hypoglycemic protocol. Check hemoglobin A1c. Vital signs were reviewed and they have been stable. Check baseline labs in a.m. Thank you for allowing us to participate in this patient's care. Please do not hesitate to contact us with any questions. I have utilized all available immediate resources to obtain, update, or review the patient's current medications (including all prescriptions, [id number] products, herbals, cannabis/cannabidiol products, and vitamin/mineral/dietary (nutritional) supplements). YES I confirmed that the patient's Advance Care Plan is present, code status is documented, or surrogate decision maker is listed in the patient's medical record. YES HPI Data of Consult Date/Time: 06/12/24 12:45 Requesting Physician: Guille Monique MD Primary Care Provider: Iram Hightower MD Consult Narrative Reason for consult: Diabetes management. Narrative: This is a 58-year-old female with insulin-dependent diabetes, [facility] Past Medical History Medical History (Updated 06/12/24 @ 12:54 by Camila Mcwilliams PA-C) Chronic pancreatitis High cholesterol History of seizure History of stroke Kidney stone Mitral valve prolapse Obesity (BMI 30-39.9) Pancreatic cyst Stomach ulcer Thyroid disease Type 2 diabetes mellitus Surgical History Surgical History H/O arthroscopy of left knee H/O dilation and curettage H/O lateral meniscus repair of left knee History of cholecystectomy Hx of appendectomy Hx of cholecystectomy (~2019) Hx of tonsillectomy Family History Family History Mother Patient's mother is in good health Family history of schizophrenia, Onset Age: 51 Father Patient's father is in good health Family history of malignant neoplasm Sibling Patient's brother is in good health Grandparent Family history of chronic obstructive pulmonary disease Family history of lung cancer, Onset Age: 69 Other Diabetes mellitus Family history of seizure disorder Social History Social History (Updated 06/12/24 @ 12:53 by Camila Mcwilliams PA-C) Social History: Surrogate medical decision maker: José Mandy, spouse. Code status: Full code. Smoking status: Never smoker Second hand tobacco smoke exposure: No Alcohol intake: current Living arrangements: with family Spiritual care concerns: No Meds Home Medications and Allergies Home Medications Medication Instructions Recorded Confirmed Type metformin 1,000 mg tablet 1,000 mg PO BID 08/20/19 06/12/24 History ezetimibe 10 mg tablet (Zetia) 10 mg PO DAILY 08/21/19 06/12/24 History blood sugar diagnostic (OneTouch #360 ea 08/25/19 06/04/24 Rx Verio test strips) ondansetron 4 mg disintegrating 4 mg PO Q6H PRN nausea and 03/23/20 06/04/24 Rx tablet vomiting #90 tabs phenazopyridine 200 mg tablet 200 mg PO TID PRN pain 6 doses #6 04/19/20 06/04/24 Rx (Pyridium) tabs insulin aspart (niacinamide) 200 unit subcut Q2D 04/19/21 06/12/24 History (U-100) 1
--- NOTE | 2024-06-12 13:22 | PM.IMCN ---
Assessment and Plan Assessment and plan (1) Pelvic pain: Code(s): R10.2 - Pelvic and perineal pain Status: Acute (2) Enlarged uterus: Code(s): N85.2 - Hypertrophy of uterus Status: Acute (3) Uterine fibroid: Code(s): D25.9 - Leiomyoma of uterus, unspecified Status: Acute (4) Insulin dependent type 2 diabetes mellitus: Code(s): E11.9 - Type 2 diabetes mellitus without complications; Z79.4 - custodial (current) use of insulin Status: Acute (5) Gastroesophageal reflux: Code(s): K21.9 - Gastro-esophageal reflux disease without esophagitis Status: Acute (6) Hypercholesterolemia: Code(s): E78.00 - Pure hypercholesterolemia, unspecified Status: Acute Plan The patient is postoperative day 0 status post robotic assisted total abdominal hysterectomy with bilateral salpingo-oophorectomy done for pelvic pain and large uterus due to a very large fibroid. Wound care, pain control, and DVT prophylaxis will be deferred to the primary service. Check baseline labs in a.m.. She uses an insulin pump at home but did not bring that with her today. Thus she will be started on long-acting insulin after confirming her basal insulin dose from her pump. Initiate sliding scale insulin, Accu-Cheks, and hypoglycemic protocol. Check hemoglobin A1c. Vital signs were reviewed and they are stable. Findings and treatment plan were discussed with the patient. Questions were solicited and answered to satisfaction. The patient's medical management will be taken over by the hospitalist team in a.m. Thank you for allowing us to participate in this patient's care. Please do not hesitate to contact us with any questions. HPI Date of Consult Consult date: 06/12/24 Requesting Physician: Guille Monique MD Primary Care Provider: Iram Hightower MD Consult Narrative Reason for consult: Diabetes management. Narrative: This is a 58-year-old female with insulin dependent type 2 diabetes mellitus, hypercholesterolemia, and gastroesophageal reflux disease whom the hospitalist service has been consulted for help managing her diabetes postoperatively. She presented today for elective hysterectomy due to ongoing pelvic pain related to fibroids. Her surgery was performed under general anesthesia with no immediate complications documented and an estimated blood loss of 50 mL. Postoperatively she has had quite a bit of nausea with mild regurgitation but no overt episodes of emesis. She has not had anything substantial to eat. Her pain is fairly well controlled. Throat is a bit sore from intubation. She denies fever, chills, sweats, chest pain, and shortness of breath. Regarding her diabetes, it is reportedly well controlled. She has an insulin pump and Dexcom at home but was told not to bring that with her today. It is unusual for glucose to be running this high (over 200) but this has been postoperatively. Review of Systems Review of Systems: 12 systems were reviewed and are negative except for as per HPI. [facility] Past Medical History Medical History (Updated 06/12/24 @ 21:42 by Camila Mcwilliams PA-C) Chronic pancreatitis Gastroesophageal reflux History of seizure As a child, none for decades and on no medication. Hypercholesterolemia Kidney stone Mitral valve prolapse Pancreatic cyst Stomach ulcer Transient ischemic attack Type 2 diabetes mellitus Surgical History Surgical History History of appendectomy History of cholecystectomy (2019) History of dilation and curettage History of lateral meniscus repair of left knee History of tonsillectomy History of total abdominal hysterectomy and bilateral salpingo-oophorectomy (06/12/24) For pelvic pain related to enlarged uterus from fibroids. Family History Family History Mother Patient's mother is in good health
[2024-06-12 13:31] LABS: Glucose Point of Care 230 mg/dl (65-105)
[2024-06-12] MEDS: LACTATED RINGERS 1,000 ML 100 ML IV CONT (13:44)
[2024-06-12] MEDS: EZETIMIBE 10 MG TABLET PO (14:51)
[2024-06-12] MEDS: DOCUSATE SODIUM 100 MG CAPSULE PO (16:38)
[2024-06-12] MEDS: PANTOPRAZOLE 40 MG TABLET PO (16:38)
[2024-06-12 17:45] LABS: Glucose Point of Care 214 mg/dl (65-105)
[2024-06-12] MEDS: INSULIN ASPART (*BKC) 100 UNITS/ML SUB-Q (20:49)
[2024-06-12] MEDS: INSULIN GLARGINE (*BKC) 100 UNITS/ML 50 UNITS SUB-Q (20:49)
[2024-06-12 20:57] LABS: Glucose Point of Care 233 mg/dl (65-105)
[2024-06-12] MEDS: PROMETHAZINE HCL 25 MG/ML AMPUL 12.5 MG IV PUSH (21:23)
[2024-06-12 23:22] LABS: Glucose Point of Care 202 mg/dl (65-105)
[2024-06-13 04:15] VITALS: BP 108/59; PULSE 62; RESP 18; TEMP 36.5; O2SAT 98
[2024-06-13] MEDS: HYDROcodone/acetaminophen (*CRX) 5-325 MG TABLET 1 TAB PO ×2 (04:20→07:43)
[2024-06-13 05:24] LABS: Basophils Percent Auto 0.5 % (0.2-1.2); Eosinophils Absolute Auto 0.1 K/mm3 (0-0.3); Eosinophils Percent Auto 1.5 % (0-4.4); Hematocrit 37.2 % (37.0-47.0); Hemoglobin 12.3 g/dL (12.0-15.0); Immature Granulocyte Absolute 0.02 K/mm3 (0.00-0.031); Immature Granulocyte Percent A 0.3 % (0-0.5); Lymphocytes Absolute Auto 1.65 K/mm3 (0.9-3.2); Lymphocytes Percent Auto 25.4 % (18.3-44.2); Mean Corpuscular HGB Conc 33.1 g/dl (32-36); Mean Corpuscular Hemoglobin 29.4 pg (26-34); Mean Platelet Volume 11.4 fl (7.4-10.4); Monocytes Absolute Auto 0.5 K/mm3 (0.1-0.6); Monocytes Percent Auto 7.9 % (2.6-8.5); Neutrophils Absolute Auto 4.2 K/mm3 (1.3-6.7); Neutrophils Percent Auto 64.4 % (45.5-73.1); Platelet Count Result 221 k/mm3 (150-375); Red Blood Count 4.18 M/mm3 (4.2-5.4); Red Cell Distribution Width 14.4 % (11.5-14.5); White Blood Count 6.5 K/mm3 (4.5-10.0)
[2024-06-13 05:37] LABS: Hemoglobin A1C 8.3 % (<5.7)
[2024-06-13 05:39] LABS: Anion Gap 4 mmol/L (4-12); Blood Urea Nitrogen 24 mg/dL (7-17); Calcium 7.9 mg/dL (8.4-10.2); Carbon Dioxide 28 mmol/L (22-30); Chloride 101 mmol/L (98-107); Estimated CRCL calculation 48 ml/min; Estimated Glomerular Filt Rate 35; Glucose 153 mg/dL (65-110); Magnesium 1.6 mg/dL (1.6-2.3); Potassium 4.7 mmol/L (3.4-5.0); Sodium 133 mmol/L (137-145)
[2024-06-13] MEDS: ENOXAPARIN 40 MG/0.4 ML SYRINGE SUB-Q (07:42)
[2024-06-13] MEDS: SIMETHICONE 80 MG TAB.CHEW PO (07:43)
[2024-06-13] MEDS: PANTOPRAZOLE 40 MG TABLET PO (07:43)
[2024-06-13] MEDS: IBUPROFEN 600 MG TABLET PO (07:43)
[2024-06-13] MEDS: DOCUSATE SODIUM 100 MG CAPSULE PO (07:43)
[2024-06-13 07:45] VITALS: BP 138/76; PULSE 62; RESP 16; TEMP 36.2
--- NOTE | 2024-06-13 08:59 | WPDANESPN ---
Anes - Prog Note Post-Op Date/Time: 06/13/24 08:59 Cardiovascular status: normal Respiratory status: normal Airway patency: baseline Mental status: baseline Post-Op hydration status: normal Vital Signs: Last Vital Signs Temp 36.5 C 06/13/24 04:15 Pulse 62 06/13/24 04:15 Resp 18 06/13/24 04:15 BP 108/59 L 06/13/24 04:15 Pulse Ox 98 06/13/24 04:15 O2 Del Method Room Air 06/13/24 04:15 O2 Flow Rate 1 06/12/24 15:30 Pain Score (VAS): 12/24 I/O: Intake & Output 06/12/24 06/13/24 06/13/24 23:59 07:59 15:59 Intake Total 1400 Output Total 500 350 Balance 900 -350 Laboratory Tests 06/13/24 03:48 06/13/24 03:46 06/12/24 06/12/24 06/12/24 10:13 13:27 17:35 WBC RBC Hgb Hct MCV MCH MCHC RDW Plt Count MPV Immature Gran % (Auto) Neut % (Auto) Lymph % (Auto) [place] % (Auto) Eos % (Auto) Baso % (Auto) Lymph # (Auto) [place] # (Auto) Eos # (Auto) Baso # (Auto) Abs Immat Gran (auto) Absolute Neuts (auto) Absolute Nucleated RBC Nucleated RBC % Sodium Potassium Chloride Carbon Dioxide Anion Gap BUN Creatinine Estim Creat Clear Calc Estimated GFR Glucose POC Capillary Glucose 250 H 230 H 214 H Hemoglobin A1c Calcium Magnesium 06/12/24 06/12/24 06/13/24 20:47 23:11 03:46 WBC RBC Hgb Hct MCV MCH MCHC RDW Plt Count MPV Immature Gran % (Auto) Neut % (Auto) Lymph % (Auto) [place] % (Auto) Eos % (Auto) Baso % (Auto) Lymph # (Auto) [place] # (Auto) Eos # (Auto) Baso # (Auto) Abs Immat Gran (auto) Absolute Neuts (auto) Absolute Nucleated RBC Nucleated RBC % Sodium 133 L Potassium 4.7 Chloride 101 Carbon Dioxide 28 Anion Gap 4 BUN 24 H Creatinine 1.50 H Estim Creat Clear Calc 48 Estimated GFR 35 L Glucose 153 H POC Capillary Glucose 233 H 202 H Hemoglobin A1c 8.3 H Calcium 7.9 L Magnesium 1.6 06/13/24 03:48 WBC 6.5 RBC 4.18 L Hgb 12.3 Hct 37.2 MCV 89.0 MCH 29.4 MCHC 33.1 RDW 14.4 Plt Count 221 MPV 11.4 H Immature Gran % (Auto) 0.3 Neut % (Auto) 64.4 Lymph % (Auto) 25.4 [place] % (Auto) 7.9 Eos % (Auto) 1.5 Baso % (Auto) 0.5 Lymph # (Auto) 1.65 [place] # (Auto) 0.5 Eos # (Auto) 0.1 Baso # (Auto) 0.0 Abs Immat Gran (auto) 0.02 Absolute Neuts (auto) 4.2 Absolute Nucleated RBC 0.000 Nucleated RBC % 0.0 Sodium Potassium Chloride Carbon Dioxide Anion Gap BUN Creatinine Estim Creat Clear Calc Estimated GFR Glucose POC Capillary Glucose Hemoglobin A1c Calcium Magnesium Post-procedural complaints: nausea (mild, no treatment) Patient Feedback: Patient satisfied with anesthetic care.
--- NOTE | 2024-06-13 10:10 | PM.GYNPNOP ---
SENIOR INTERACTION DESIGNER - A/P Postoperative Procedures: Procedures Operation Date: 06/12/24 07:30 Actual Procedure Side Surgeon p Robotic Assisted Total Vaginal Hysterectomy with Bilateral Salpingo Oophorectomy Bilateral Guille Monique MD Postoperative day: 1 Postoperative status: doing well Postoperative plan: routine post-op care and discharge Time Spent With Patient Time: Total time spent is greater than 50% in coordination of care (as documented) at patient's floor/unit and/or counseling patient: Time with patient: less than 15 minutes SENIOR INTERACTION DESIGNER- PN:Subj Post-Op Subjective Date/time seen: 06/13/24 10:10 Subjective: patient has no complaints, pain is well controlled (mainly pain with change position) and patient is tolerating oral intake Exam Narrative: inc c/d/i abdomen soft, nd, appropriately tender SENIOR INTERACTION DESIGNER - PN: Obj Data Vital Signs Vital Signs: Vital Signs - 24 hr 06/12/24 10:15 06/12/24 10:30 06/12/24 11:00 Temperature Pulse Rate 59 L 62 68 Respiratory Rate 12 12 12 Blood Pressure 118/80 141/72 H 128/70 Pulse Oximetry 98 98 97 Oxygen Delivery Simple Face Mask Simple Face Mask Nasal Cannula Oxygen Flow Rate 10 10 2 06/12/24 10:45 06/12/24 11:21 06/12/24 11:40 Temperature 97.1 F L 96.8 F L Pulse Rate 65 62 60 Respiratory Rate 12 10 L 16 Blood Pressure 144/83 H 144/84 H 142/75 H Pulse Oximetry 97 97 100 Oxygen Delivery Nasal Cannula Nasal Cannula Oxygen Flow Rate 2 2 06/12/24 12:20 06/12/24 11:30 06/12/24 15:30 Temperature 97.5 F L 98.2 F Pulse Rate 60 Respiratory Rate 14 Blood Pressure 106/82 Pulse Oximetry 100 97 Oxygen Delivery Nasal Cannula Oxygen Flow Rate 2 06/12/24 15:30 06/12/24 19:35 06/12/24 19:35 Temperature 98 F Pulse Rate 68 Respiratory Rate 18 Blood Pressure 124/68 Pulse Oximetry 97 97 Oxygen Delivery Nasal Cannula Room Air Oxygen Flow Rate 1 06/12/24 23:10 06/12/24 23:10 06/13/24 04:15 Temperature 97.9 F 97.7 F Pulse Rate 70 62 Respiratory Rate 18 18 Blood Pressure 116/63 108/59 L Pulse Oximetry 98 98 Oxygen Delivery Room Air Oxygen Flow Rate 09/28/24 04:15 06/13/24 07:45 Temperature 97.1 F L Pulse Rate 62 Respiratory Rate 16 Blood Pressure 138/76 Pulse Oximetry Oxygen Delivery Room Air Oxygen Flow Rate Intake/Output Intake/Output: Intake & Output 06/10/24 06/11/24 06/12/24 06/13/24 23:59 23:59 23:59 23:59 Intake Total 2450 Output Total 950 550 Balance 1500 -550 Meds/Results Medications: Active Medications Generic Name Dose Route Start Last Admin Trade Name Freq PRN Reason Stop Dose Admin Hydrocodone Bitart/Acetaminophen 1 tab 06/12/24 11:28 06/13/24 07:43 Hydrocodone/Acetaminophen (*Crx) 5-325 Mg Tablet PO 1 tab Q3H PRN Administration Pain Rated 5 or Less Hydrocodone Bitart/Acetaminophen 1 tab 06/12/24 11:28 06/12/24 15:47 Hydrocodone/Acetaminophen (*Crx) 10-325 Mg Tablet PO 1 tab Q3H PRN Administration Pain Rated 6 or Greater Dextrose 12.5 gm 06/12/24 13:01 Dextrose 50% 25 Gm/50 Ml Syringe IV PUSH PRN PRN Hypoglycemia Protocol Docusate Sodium 100 mg 06/12/24 17:00 06/13/24 07:43 Docusate Sodium 100 Mg Capsule PO 100 mg BID VIDA Administration Ezetimibe 10 mg 06/12/24 15:00 06/12/24 14:51 Ezetimibe 10 Mg Tablet PO 10 mg DAILY VIDA Administration Enoxaparin Sodium 40 mg 06/13/24 09:00 06/13/24 07:42 Enoxaparin 40 Mg/0.4 Ml Syringe SUB-Q 40 mg DAILY VIDA Administration Glucagon 1 mg 06/12/24 13:01 Glucagon For Inj 1 Mg Vial IM PRN PRN Hypoglycemia Protocol Glucose 15 gm 06/12/24 13:01 Glucose Oral Gel 15 Gm Of Glucse In 37.5 Gm Tube PO PRN PRN Hypoglycemia Protocol Dextrose 1,000 mls @ 100 mls/hr 06/12/24 13:01 Dextrose 5% 1,000 Ml IVPB PRN PRN Hypoglycemia Protocol Lactated Ringer's 1,000 mls @ 100 mls/hr 06/12/24 13:30 06/12
--- NOTE | 2024-06-13 10:56 | PM.IMPN ---
Progress Note: A&P Assessment and Plan (1) Pelvic pain: Code(s): R10.2 - Pelvic and perineal pain Status: Acute Assessment and Plan: -The patient is postoperative day 1 status post robotic assisted total abdominal hysterectomy with bilateral salpingo-oophorectomy done for pelvic pain and large uterus due to a very large fibroid. Wound care, pain control, and DVT prophylaxis will be deferred to the primary service. (2) Enlarged uterus: Code(s): N85.2 - Hypertrophy of uterus Status: Acute Assessment and Plan: -The patient is postoperative day 1 status post robotic assisted total abdominal hysterectomy with bilateral salpingo-oophorectomy done for pelvic pain and large uterus due to a very large fibroid. Wound care, pain control, and DVT prophylaxis will be deferred to the primary service. (3) Uterine fibroid: Code(s): D25.9 - Leiomyoma of uterus, unspecified Status: Acute Assessment and Plan: -The patient is postoperative day 1 status post robotic assisted total abdominal hysterectomy with bilateral salpingo-oophorectomy done for pelvic pain and large uterus due to a very large fibroid. Wound care, pain control, and DVT prophylaxis will be deferred to the primary service. (4) Insulin dependent type 2 diabetes mellitus: Code(s): E11.9 - Type 2 diabetes mellitus without complications; Z79.4 - manager intermediate (current) use of insulin Status: Acute Assessment and Plan: - HgbA1C 8.3. - Patient will be on long acting insulin here and her basal insulin in pump once back home along with SSI, accuchecks, and hypoglycemic protocol. (5) Nausea: Code(s): R11.0 - Nausea Status: Acute Assessment and Plan: - Take ondansetron as needed. - Eat small meals and increase intake as tolerated. (6) Gastroesophageal reflux: Code(s): K21.9 - Gastro-esophageal reflux disease without esophagitis Status: Acute Assessment and Plan: - Pantoprazole Plan Thank you for allowing us to participate in this patient's care. Please do not hesitate to contact us with any questions. -Discharge home today. Subjective Date/time seen: 06/13/24 10:56 Interval history: Patient had an elective hysterectomy yesterday due to ongoing pelvic pain related to fibroids. Patient reports that her abdominal pain is a 5 , constant, cramping, and sharp with movement. Patient reports nausea that improved with nausea medication. Patient reports being a little lightheaded if she gets up too quickly. Patient denies chest pain, palpitations, headache, or shortness of breath. Reports tolerating food and drinking water. is at the bedside. Patient feels that she is ready to discharge home today. Review of Systems Review of Systems: All systems reviewed & are unremarkable except as noted in HPI and below Exam Const: General: no acute distress and uncomfortable Resp: Auscultation: clear to auscultation bilaterally Cardio: Rate: regular rate Rhythm: regular rhythm GI: GI Palp: Yes Soft to palpation Auscultation: normal bowel sounds : Other: voiding without difficulty Skin: Other: Surgical incisions approximated with glue intact. No redness, swelling, or drainage noted. Neuro: Speech: normal speech Sensory Exam: normal sensation Extrem: General: normal to inspection and no pedal edema Psych: Mental Status: mental status grossly normal Affect: normal affect Objective Data Vital Signs Vital Signs: Vital Signs - 24 hr 06/12/24 11:00 06/12/24 11:21 06/12/24 11:40 Temperature 97.1 F L 96.8 F L Pulse Rate 68 62 60 Respiratory Rate 12 10 L 16 Blood Pressure 128/70 144/84 H 142/75 H Pulse Oximetry 97 97 100 Oxygen Delivery Nasal Cannula Nasal Cannula Oxygen Flow Rate 2 2 06/12/24 12:20 06/12/24 11:30 06/12/24 15:30 Temperature 97.5 F L 98.2 F Pulse Rate 60 Respiratory Rate 14 Blood Pressure 106/82 Pulse Oximetr
--- NOTE | 2024-06-17 16:40 | PCCDE ---
Consult received for diabetes education on Tuesday 06/12 however pt was discharged 06/13 before consult was completed. Pt was admitted for hysterectomy. Hx of DM, HLP, and chronic pancreatitis noted. Called pt at home; her diabetes is managed by telescope repairer Dr Rollins and she uses Rosemary 3 and OmniPod Dash insulin pump. Pt notes she also has reduced kidney fx (usual GFR=50) and sees nephrology who recently recommended she tx hypoglycemia with glucose tabs instead of OJ d/t hyperkalemia. We discussed treating hypoglycemia and using the Rule of 15; pt now has glucose tabs in the car and house. Pt is noting BG running a bit higher than usual due to pain but not higher than 160mg/dl. We discussed other causes of hyperglycemia after surgery due physical stress of surgery and less activity which is all temporary. Provided DM Specialist contact info for questions and encouraged to seek referral for OP education from telescope repairer eddy.
== END 2024-06-13 11:20 | disposition home or self-care (01) ==
LOC: ANHSURGERY 06:32 → ANHOB2 11:31
PROVIDERS: Physician Assistant; PCP Family Medicine; Visit Provider Obstetrics & Gynecology
PROC: (CPT 58552; principal; 2024-06-12 07:30)
DX: D25.9 Leiomyoma of uterus, unspecified (principal); N85.2 Hypertrophy of uterus; R10.2 Pelvic and perineal pain; E11.9 Type 2 diabetes mellitus without complications; Z79.4 Long term (current) use of insulin; K21.9 Gastro-esophageal reflux disease without esophagitis; E78.00 Pure hypercholesterolemia, unspecified; Z86.73 Personal history of transient ischemic attack (TIA), and cerebral infarction without residual deficits; R11.0 Nausea
CPT/HCPCS: 58552; S2900; 36415; 80048; 82948; 83036; 83735; 85025; 88307; 99199; A9270; J0330; J0690; J1170; J1650; J1815; J1885; J2250; J2405; J2550; J2704; J3010; J7030; J7120